=== PATIENT | female | born 1965 | race Caucasian/White ===

== ENCOUNTER 2017-01-30 07:50 | Emergency (ER) | payer OTHER ==
[~2017-01-30] VITALS: Ht 167.6 cm; Wt 72.6 kg
[~2017-01-30 07:50] MED LIST: DILAUDID2 MG PO
[2017-01-30 07:55] VITALS: BP 117/77
--- NOTE | 2017-01-30 09:25 | ED UPPER/LOWER EXTREMITY COMPL ---
History of Present Illness General Chief Complaint: Lower Extremity Injury Stated Complaint: RT HIP PAIN ? FX SENT IN BY PMD FOR CT Source: patient, old records Exam Limitations: no limitations Allergies Coded Allergies: NO KNOWN ALLERGIES (01/05/15) Reconcile Medications HYDROMORPHONE HCL (Dilaudid) 2 MG TABLET 1-2 TAB PO Q6H PRN PAIN Oxycodone HCl 5 MG CAPSULE 1-2 CAP PO Q6P PRN PAIN Triage Note: PT TO ED FOR R HIP PAIN X 2 WEEKS, HAD AN OUT PATIENT XRAY WHICH SHOWED "A FRACTURE SO THEY SENT ME HERE FOR A CT SCAN AND MY PERCOCET ISN'T WORK" ABLE TO AMBULATE WITH LIMP. Triage Nurses Notes Reviewed? yes HPI: Ms. Stewart 54 yo F with PMH of DM, chronic back pain and previous surgery(ORIF) for right ankle fracture 2 yeras back drove her car to ED by herself with CC of right hip pain for last one week. According to pt she sprained her hip muscle 2 weeks back when she tried to get into her truck but at that time time hip pain was intermittent and dull but a week ago she fell down on floor while lifting the box and a sudden severe pain started in her right hip that is 9/10, constant , radiating to upper thigh, aggravated by movement and relieved by rest in reclining position. She can't lay in bed flat and her boyfriend took her to pcp and he prescribed her percocet and actamionophen but it didn't relieve the pain. she is using crutches at home to move around. Last her pcp ordered hip xray and that showed osteopenia and question of fracture on xray. Her pcp sent her to get a CT scan of pelvis. (RADHIKA LEWIS,[place]) Vital Signs & Intake/Output Vital Signs & Intake/Output Vital Signs Date Time Temp Pulse Resp B/P B/P Pulse O2 O2 Flow FiO2 Mean Ox Delivery Rate 01/30 0755 97.7 90 18 117/77 100 Room Air Past History Travel History Traveled to [place] past 21 day No Medical History Any Pertinent Medical History? see below for history Neurological: peripheral neuropathy EENT: NONE Cardiovascular: hypertension, hyperlipidemia Respiratory: NONE Gastrointestinal: NONE Hepatic: NONE Renal: NONE Musculoskeletal: rheumatoid arthritis Psychiatric: NONE Endocrine: diabetes Blood Disorders: NONE Cancer(s): NONE ASSISTANT PRINCIPAL/Reproductive: NONE Surgical History Surgical History: non-contributory, status post excision of pilonidal cyst Psychosocial History Who do you live with Other (see notes) What is your primary language Tajik Tobacco Use: Current Daily Use Daily Tobacco Use Amount/Type: => 5 Cigarettes daily ETOH Use: occasional use Illicit Drug Use: denies illicit drug use Family History Hx Contributory? No (YASHIRA GARRIDO MD) Review of Systems Review of Systems Constitutional: Reports: no symptoms. EENTM: Reports: no symptoms. Respiratory: Reports: no symptoms. Cardiovascular: Reports: no symptoms. Gastrointestinal/Abdominal: Reports: no symptoms. Genitourinary: Reports: no symptoms. Musculoskeletal: Reports: see HPI, joint pain. Skin: Reports: no symptoms. Neurological/Psychological: Reports: no symptoms. Hematologic/Endocrine: Reports: no symptoms. Immunological: Reports: no symptoms. All Other Systems: Reviewed and Negative (RADHIKA LEWIS,YASHIRA) Physical Exam Physical Exam General Appearance: well developed/nourished, no apparent distress, alert, awake Head: normal appearance Eyes: Bilateral: normal appearance, PERRL, EOMI. Neck: normal inspection Cardiovascular/Respiratory: normal breath sounds, normal peripheral pulses, regular rate/rhythm, no respiratory distress Peripheral Pulses: 4+ tibialis posterior (R), 4+ tibialis posterior (L), 4+ dorsalis pedis (R), 4+ dorsalis pedis (L) Hip Left: normal range of motion, normal inspection Hip Right: tenderness, pain Foot Right: normal range of motion Neurologic/Tendon: normal sensation, normal motor functions, normal tendon functions Skin: intact, normal color, warm/dry (YASHIRA GARRIDO MD) Progress Differential Diagnosis: contusion, dislocation, fracture, sprain Plan of Care: Orders Procedure Date/time Status CT PELVIS WO IV CONTRAST 01/30 851 Active Diagnostic Imaging: Viewed by Me: CT Scan. Discussed w/RAD: CT Scan. Comments: Paient advised of CT scan results and pain has decreased after toradol. Questions have been answered. (RADHIKA LEWIS,YASHIRA) Radiology Impression: PATIENT: PASCUAL STEWART PRESENT AGE: 51 PATIENT ACCOUNT NO: [id number] : 64 LOCATION: [facility] ORDERING PHYSICIAN: YASHIRA GARRIDO MD SERVICE DATE: 01/30/17 EXAM TYPE: CAT - CT PELVIS WO IV CONTRAST EXAMINATION: CT PELVIS WITHOUT CONTRAST CLINICAL INFORMATION: Persistent pain right hip since recent fall. Plain films suspicious for nondisplaced intertrochanteric fracture. COMPARISON: Right hip radiographs 01/28/2017. TECHNIQUE: Axial CT of the pelvis is performed without contrast. Additional 2-D coronal and sagittal reformatted images are generated on the CT workstation. DLP: 792 mGy-cm FINDINGS: The bony pelvis and hips appear intact. There is no fracture or dislocation or destructive process. There is no diastases of the SI joints or pubis. The lumbosacral junction shows no spondylolysis or spondylolisthesis. Superficial soft tissue show no soft tissue hematoma. There is no inguinal hernia. The deep pelvis shows no ascites or fluid collection. There are no inflammatory changes in the bowel or mesentery. The appendix is normal. There is no adnexal mass. The uterus is retroverted. There is tubular shaped collection of gas in the vaginal cavity presumably from tampon. Clinically correlate. The urinary bladder is distended, otherwise unremarkable. IMPRESSION: 1. No fracture or dislocation. No soft tissue hematoma or pelvic ascites. 2. Normal appendix. No adnexal mass. 3. Tubular shaped collection of gas in the vaginal cavity presumably from tampon. Clinically correlate. DICTATED BY: MARTY OSEGUERA MD DATE/TIME DICTATED:01/30/17923 BUCKET WASH OPERATOR:TOBI DATE/TIME TRANSCRIBED:01/30/17923 CONFIDENTIAL, DO NOT COPY WITHOUT APPROPRIATE AUTHORIZATION. <Electronically signed in Other Vendor System> SIGNED BY: MARTY OSEGUERA MD 01/30/17 0941 (KODAK LEWIS,MALOU Rosario) Departure Departure Disposition: HOME OR SELF CARE Condition: Stable Clinical Impression Primary Impression: Right hip pain Referrals: KEYUR LEWIS,CHELSEA GUTIERREZ MD,AVRIL (PCP/Family) Additional Instructions: take oxycodon as needed for pain. Follow up with Dr. Holbrook. Return for any concerns. Departure Forms: Customer Survey General Discharge Information (RADHIKA LEWIS,YASHIRA) Departure Prescriptions: Current Visit Scripts Oxycodone HCl 1-2 CAP PO Q6P PRN PAIN #20 CAP Resident Co-Sign Statement Statement: ED Attending supervision documentation- [X] I saw and evaluated the patient. I have also reviewed all the pertinent lab results and diagnostic results. I agree with the findings and the plan of care as documented in the Resident's documentation. [X] I have reviewed the ED Record and agree with the Resident's documentation. [] Additions or exceptions (if any) to the Resident's note and plan are summarized below: [I personally seen and examined this patient. I agree with the above note and agree with what has been written. Patient states that she believes that the Percocet 5 mg is not helping because pointer, when her arthritis flares up, she takes 10 mg of Percocet and that seems to help so half the dose stop her help. Patient also states that the acetaminophen part of it upsets her stomach. A CAT scan does not show any evidence of occult fracture. Patient has been given follow-up with orthopedics. Patient's pain medication has been increased.] (KODAK LEWIS,MALOU Rosario)
--- NOTE | 2017-01-30 09:41 | CT SCAN REPORT ---
EXAMINATION: CT PELVIS WITHOUT CONTRAST CLINICAL INFORMATION: Persistent pain right hip since recent fall. Plain films suspicious for nondisplaced intertrochanteric fracture. COMPARISON: Right hip radiographs 01/28/2017. TECHNIQUE: Axial CT of the pelvis is performed without contrast. Additional 2-D coronal and sagittal reformatted images are generated on the CT workstation. DLP: 792 mGy-cm FINDINGS: The bony pelvis and hips appear intact. There is no fracture or dislocation or destructive process. There is no diastases of the SI joints or pubis. The lumbosacral junction shows no spondylolysis or spondylolisthesis. Superficial soft tissue show no soft tissue hematoma. There is no inguinal hernia. The deep pelvis shows no ascites or fluid collection. There are no inflammatory changes in the bowel or mesentery. The appendix is normal. There is no adnexal mass. The uterus is retroverted. There is tubular shaped collection of gas in the vaginal cavity presumably from tampon. Clinically correlate. The urinary bladder is distended, otherwise unremarkable. IMPRESSION: 1. No fracture or dislocation. No soft tissue hematoma or pelvic ascites. 2. Normal appendix. No adnexal mass. 3. Tubular shaped collection of gas in the vaginal cavity presumably from tampon. Clinically correlate.
[2017-01-30] MEDS ORDERED: OXYCODONE HCL5 M2 PO (10:28)
== END 2017-01-30 10:35 ==
LOC: ERH 07:50
DX: M25.551 Pain in right hip (principal)
CPT/HCPCS: 96372; J1885